=== PATIENT | female | born 1990 | race Caucasian/White ===

== ENCOUNTER → 2022-11-02 | Outpatient (REF) | payer OTHER ==
[~2022-11-02] MED LIST: LEVORA PO; PAXI20TA OR; TRAZ50TA OR; WELL100T2 OR
== END ==
LOC: M PLALAB 15:17
PROVIDERS: ATTEND Nurse Practitioner Family
DX: Z53.9 Procedure and treatment not carried out, unspecified reason (principal)

== ENCOUNTER → 2023-10-22 | Outpatient (REF) | payer OTHER, BC ==
[~2023-10-22] MED LIST changes: +ACET-683 PO; +BIOT10TA2 PO; +C 50TAB PO; +COLA100C5 PO; +D32000TA PO; +FAMO40TA3 PO; +FERR32TA PO; +KURV0.15 PO; +MILK175T PO; +MULTCAP PO; +OMEP-173 PO; +OMEP40CA4 PO; +VITA100093 PO
== END ==
LOC: M SFHCWAGY 17:47
PROVIDERS: ATTEND Obstetrics & Gynecology
DX: N93.9 Abnormal uterine and vaginal bleeding, unspecified (principal)

== ENCOUNTER 2024-02-07 06:01 | Observation (INO) | payer BC ==
[2024-02-07] VITALS (9 sets, daily range): BP systolic 116–135; BP diastolic 55–71; TEMP 98.1–99.4; O2SAT 88–99
[~2024-02-07] VITALS: Ht 157.5 cm; Wt 105.6 kg
[~2024-02-07 06:01] MED LIST changes: +APPLTAB2 PO; +CETI10CA2 PO
[2024-02-07] MEDS: LR 1,000 ML IV SCH ×2 (06:30→10:05)
[2024-02-07] MEDS ORDERED: fentaNYL 100 MCG/2 ML INJECTION As Ordered ONE (06:51)
[2024-02-07] MEDS ORDERED: MIDAZOLAM INJ 2MG/2ML VIAL As Ordered ONE (06:52)
[2024-02-07] MEDS ORDERED: propofoL 200 MG/20 ML VIAL As Ordered ONE (06:52)
[2024-02-07] MEDS ORDERED: ROCURONIUM BROMIDE 50MG/5ML VIAL As Ordered ONE (06:52)
[2024-02-07] MEDS ORDERED: LIDOCAINE 2% 100MG/5ML SDV (FOR ANES.) As Ordered ONE (06:52)
[2024-02-07] MEDS: ceFAZolin 2 GM/D5W 50 ML IV BAG As Ordered ONE (07:46)
[2024-02-07] MEDS: ceFAZolin 1GM VIAL As Ordered ONE (07:47)
[2024-02-07] MEDS ORDERED: ACETAMINOPHEN 1000MG 100ML IV BAG As Ordered ONE (08:06)
[2024-02-07] MEDS ORDERED: GLYCOPYRROLATE INJ 0.2 MG/ML 2 ML VIAL As Ordered ONE (08:47)
[2024-02-07] MEDS: DOCUSATE SODIUM 100MG CAPSULE PO SCH (09:00)
[2024-02-07] MEDS: METHYLENE BLUE 0.5% (5MG/ML) 10 ML AMP (PROVAYBLUE) As Ordered ONE (09:28)
[2024-02-07] MEDS ORDERED: ONDANSETRON 4MG 2ML VIAL As Ordered ONE (09:32)
[2024-02-07] MEDS ORDERED: SUGAMMADEX SODIUM 500 MG/5 ML VIAL (BRIDION) As Ordered ONE (09:32)
[2024-02-07] MEDS ORDERED: MORPHINE 4 MG/ML 1ML VIAL IV PRN (10:05)
[2024-02-07] MEDS ORDERED: ONDANSETRON 4MG 2ML VIAL IV PRN (10:05)
[2024-02-07] MEDS ORDERED: PERCOCET 5MG/325MG TAB PO PRN (10:05)
[2024-02-07] MEDS ORDERED: PROMETHAZINE 25MG/ML 1ML VIAL IV PRN (10:05)
[2024-02-07] MEDS ORDERED: oxyCODONE 5MG TAB PO PRN (10:05)
[2024-02-07] MEDS ORDERED: IBUP80TA PO (10:12)
[2024-02-07] MEDS ORDERED: PERCOCET PO (10:12)
[2024-02-07] MEDS ORDERED: COLA100C5 PO (10:12)
[2024-02-07] MEDS: ONDANSETRON 4MG 2ML VIAL IV PRN (10:19)
[2024-02-07] MEDS: fentaNYL 100 MCG/2 ML INJECTION IV PRN (10:32)
[2024-02-07] MEDS ORDERED: METOCLOPRAMIDE INJ 10MG/2ML VIAL IV PRN (10:40)
[2024-02-07] MEDS ORDERED: HYDROMORPHONE HCL 0.5 MG/ 0.5 ML SYRINGE IV PRN (10:40)
[2024-02-07] MEDS: PROMETHAZINE 25MG/ML 1ML VIAL IV PRN (11:04)
[2024-02-07] MEDS: KETOROLAC 30 MG/ML 1ML VIAL IV SCH (11:09)
[2024-02-07] MEDS ORDERED: HOME MED LIST COMPLETE! XX SCH (12:45)
[2024-02-07] MEDS ORDERED: OMEPRAZOLE 20MG CAP PO SCH (21:00)
[2024-02-07] MEDS: PERCOCET 5MG/325MG TAB PO PRN (21:04)
[2024-02-08] VITALS: BP 109/56; TEMP 98.5; O2SAT 94
[2024-02-08 04:00] VITALS: BP 122/61; TEMP 98.3; O2SAT 97
[2024-02-08] MEDS: OMEPRAZOLE 20MG CAP PO SCH (04:49)
[2024-02-08 08:00] VITALS: BP 113/68; TEMP 97.7; O2SAT 99
[2024-02-08] MEDS ORDERED: IBUPROFEN 800 MG TAB PO SCH (13:00)
== END 2024-02-08 12:33 | disposition home or self-care (01) ==
LOC: M SDC 06:01 → M RR INP 06:02 → M PED 11:36
PROVIDERS: ADMIT Obstetrics & Gynecology; ATTEND Obstetrics & Gynecology
DX: N93.9 Abnormal uterine and vaginal bleeding, unspecified (principal); R10.2 Pelvic and perineal pain; K21.9 Gastro-esophageal reflux disease without esophagitis; D64.9 Anemia, unspecified; Z79.899 Other long term (current) drug therapy; Z88.8 Allergy status to other drugs, medicaments and biological substances
CPT/HCPCS: 58571; 88307; 96374; 96376; J0131; J0665; J0690; J1100; J1885; J2250; J2405; J2550; J3010; Q9968; S2900

== ENCOUNTER → 2024-03-17 | Outpatient (REF) | payer BC ==
[~2024-03-17] MED LIST changes: +IBUP80TA PO; +PERCOCET PO
== END ==
LOC: M SFHCWAGY 17:00
PROVIDERS: ATTEND Obstetrics & Gynecology
DX: N32.89 Other specified disorders of bladder (principal)

== ENCOUNTER → 2024-11-17 | Outpatient (CLI) | payer BC | LOC: M WHC 13:55 | PROVIDERS: ATTEND Obstetrics & Gynecology | DX: N64.4 Mastodynia (principal); R92.313 Mammographic fatty tissue density, bilateral breasts | CPT/HCPCS: 77066; G0279 ==

== ENCOUNTER → 2025-07-06 | Outpatient (CLI) | payer BC ==
[~2025-07-06] MED LIST changes: +E-Z-GAS II EFFERVESCENT PACKET (SODIUM BICARB./CITRIC ACID/SIMETHICONE) As Ordered ONE; +E-Z-HD 98% w/w 340 GM SUSP BTL As Ordered ONE; +E-Z-PAQUE 96% w/w SUSP 176 GM BTL As Ordered ONE
== END ==
LOC: M RAD 09:08
PROVIDERS: ATTEND Surgery
DX: R13.10 Dysphagia, unspecified (principal); Z98.84 Bariatric surgery status; K44.9 Diaphragmatic hernia without obstruction or gangrene; K21.9 Gastro-esophageal reflux disease without esophagitis

== ENCOUNTER → 2025-07-15 | Outpatient (REF) | payer BC ==
[~2025-07-15] MED LIST changes: -E-Z-GAS II EFFERVESCENT PACKET (SODIUM BICARB./CITRIC ACID/SIMETHICONE) As Ordered ONE; -E-Z-HD 98% w/w 340 GM SUSP BTL As Ordered ONE; -E-Z-PAQUE 96% w/w SUSP 176 GM BTL As Ordered ONE
== END ==
LOC: M SFHCWAGY 15:12
PROVIDERS: ATTEND Physician Assistant
DX: N89.8 Other specified noninflammatory disorders of vagina (principal)